=== PATIENT | male | born 1960 | race Caucasian/White ===

== ENCOUNTER 2020-07-01 06:06 | Day surgery (SDC) | payer OTHER ==
[~2020-07-01] VITALS: Ht 170.2 cm; Wt 79.5 kg
[~2020-07-01 06:06] MED LIST: ATOR40TA28 PO; MELO-107 PO; OLAN5TAB2 PO; OMEP20 PO; SODIUM CHLORIDE 0.9% 1,000 ML ONE
[2020-07-01] MEDS ORDERED: LIDOCAINE 2% 5 ML JELLY TP ONE (06:07)
[2020-07-01] MEDS ORDERED: ALBUTEROL SULFATE 2.5 MG/0.5 ML NEB SOLUTION NEB ONE (06:07)
[2020-07-01] MEDS ORDERED: LIDOCAINE 4% 50 ML SOLUTION TP ONE (06:07)
[2020-07-01] MEDS ORDERED: LIDOCAINE 2% 30 ML JELLY TP ONE (06:07)
[2020-07-01] MEDS ORDERED: BENZOCAINE 20% 50 MCG/SPRAY 57 GM TP ONE (06:07)
[2020-07-01] MEDS ORDERED: SODIUM CHLORIDE 0.9% 1,000 ML IV ONE (06:30)
[2020-07-01] MEDS ORDERED: MIDAZOLAM HCL 2 MG/2 ML VIAL ONE (08:23)
[2020-07-01] MEDS ORDERED: FentaNYL CITRATE PF 100 MCG/2 ML VIAL ONE (08:23)
[2020-07-01] MEDS ORDERED: MethylPREDNISolone SOD SUCC 125 MG/2 ML VIAL IVP ONE (09:00)
[2020-07-01] MEDS ORDERED: MethylPREDNISolone SOD SUCC 125 MG/2 ML VIAL ONE (09:21)
[2020-07-01] MEDS ORDERED: OXYGEN THERAPY IH SCH (20:00)
== END 2020-07-01 10:05 | disposition home or self-care (01) ==
LOC: SURGERY 06:06
PROVIDERS: ATTEND Internal Medicine Critical Care Medicine
DX: J38.4 Edema of larynx (principal); B37.0 Candidal stomatitis; J44.9 Chronic obstructive pulmonary disease, unspecified; F17.210 Nicotine dependence, cigarettes, uncomplicated; Z98.890 Other specified postprocedural states; Z79.899 Other long term (current) drug therapy
CPT/HCPCS: 31623; 31624; 71045; 87070; 87101; 87206; 87220; 88108; 88184; 88185; 88312; J2250; J2930; J3010; J7030; J7613; Z7610